=== PATIENT | male | born 1945 | race Caucasian/White ===

== ENCOUNTER 2024-01-07 11:35 | Emergency (ER) | payer OTHER, MEDICAID ==
[~2024-01-07] VITALS: Ht 165.1 cm; Wt 65.8 kg
[2024-01-07 11:39] VITALS: BP_SYST 178; PULSE 75; RESP 16; TEMP 97.9; O2SAT 96
== END 2024-01-07 12:37 | disposition home or self-care (01) ==
LOC: SED 11:35
DX: R33.9 Retention of urine, unspecified (principal)
CPT/HCPCS: 99281